=== PATIENT | female | born 1965 | race Caucasian/White ===

== ENCOUNTER 2016-07-14 18:02 | Emergency (ER) | payer BC, OTHER ==
[2016-07-14] MEDS ORDERED: Sodium Chloride 0.9% 2.5 ML Syringe FLUSH PRN (18:05)
[2016-07-14] MEDS ORDERED: Aspirin 81 MG Tab.Chew PO ONE (18:05)
[2016-07-14] MEDS ORDERED: Famotidine 20 MG/2 ML SDV IVPUSH ONE (18:05)
[2016-07-14] MEDS ORDERED: Sodium Chloride 0.9% 10 ML Syringe FLUSH PRN (18:05)
--- NOTE | 2016-07-14 18:08 | EDM.PDOC ---
ED HISTORY OF PRESENT ILLNESS - General Stated Complaint: CHEST PAINS Time Seen by Provider: 07/14/16 18:08 Source of Information: Reports: Patient History Limitations: Reports: No limitations - History of Present Illness INITIAL COMMENTS - FREE TEXT/NARRATIVE: HISTORY AND PHYSICAL: [51-year-old female presents with chest pain for the last week] History of Present Illness: [Pain moves around from day to the left side the right side to the back She has been taking 20 ibuprofen tablets daily and states it helps with the pain Alcohol intake tonight it does make her feel better She had dinner stated to the significant other that she just couldn't take it anymore and had to come to the ER] Review of Systems: As per history of present illness and below otherwise all systems reviewed and negative. Past medical history: As per history of present illness and as reviewed below otherwise noncontributory. Surgical history: As per history of present illness and as reviewed below otherwise noncontributory. Social history: No reported history of drug or alcohol abuse. Family history: As per history of present illness and as reviewed below otherwise noncontributory. Physical exam: Patient voices concern over impending doom. " I feel like I am going to " HEENT: Atraumatic, normocehpalic, pupils reactive, negative for conjunctival pallor or scleral icterus, mucous membranes moist, throat clear, neck supple, nontender, trachea midline. Lungs: Clear to auscultation, breath sounds equal bilaterally, chest tender on palpation. Heart: S1S2, regular, negative for clicks, rubs, or JVD. Abdomen: Soft, nondistended, nontender. Negative for masses or hepatossplenmegaly. Negative for costovertebral tenderness. No rebound no guarding. Extremities: Atraumatic, negative for cords or calf pain. Neurovascular unremarkable. Neuro: Awake, alert, oriented. Cranial nerves II through XII unremarkable. Cerebellum unremarkable. Motor and sensory unremarkable throughout. Exam nonfocal. Discussed with patient and that her cardiac enzymes are negative however have offered for admission for observation on telemetry patient expressing desire to return home. Patient verbalized understanding of the my concerns. Diagnostics: [CBC CMP and EKG troponin amylase lipase UA urine drug screen] Therapeutics: []IV Fluid ativan 0.5mg IV Impression: [Chest wall pain/atypical chest pain Gastritis Plan: [The patient will be discharged to home Instructions have been given for patient to stop using her ibuprofen Prescription for diclofenac written Would like patient to take Mylanta 4 times a day ] Definitive disposition and diagnosis as appropriate pending reevaluation and review of above. Timing/Duration: Reports: Week(s):, Sudden onset Severity: moderate Location, General: Reports: chest Quality: Reports: Ache, Stabbing Associated Symptoms (General): Reports: no other symptoms - Related Data Allergies/ADRs: Allergies Allergy/AdvReac Type Severity Reaction Status Date / Time No Known Allergies Allergy Verified 07/14/16 18:11 Home Meds: Home Meds Ibuprofen 200 mg PO DAILY 07/14/16 [History] ED ROS GENERAL - Review of Systems Review Of Systems: ROS reveals no pertinent complaints other than HPI. ED EXAM, GENERAL - Physical Exam Exam: See Below (see dictation) Course - Vital Signs Last Recorded V/S: Last Vital Signs Temp 36.6 C 07/14/16 19:25 Pulse 101 H 07/14/16 19:25 Resp 20 07/14/16 19:25 BP 109/55 L 07/14/16 19:25 Pulse Ox 97 07/14/16 19:25 - Orders/Labs/Meds Orders: Active Orders 24 hr Category Date Time Status Cardiac Monitoring [RC] . DIRECTED Care 07/14/16 18:05 Active EKG Documentation Completion [RC] STAT Care 07/14/16 18:05 Active EKG Documentation Completion [RC] STAT Care 07/14/16 19:18 Active Oxygen Therapy [RC] ASDIRECTED Care 07/14/16 18:05 Active Chest 1V Frontal [CR] Stat Exams 07/14/16 18:05 Taken Sodium Chloride 0.9% [Saline Flush] Med 07/14/16 18:05 Active 10 ml FLUSH ASDIRECTED PRN Sodium Chloride 0.9% [Saline Flush] Med 07/14/16 18:05 Active 2.5 ml FLUSH ASDIRECTED PRN Peripheral IV Insertion Adult [OM.PC] Stat Oth 07/14/16 18:05 Ordered Saline Lock Insert [OM.PC] Stat Oth 07/14/16 18:05 Ordered Medication Orders Sodium Chloride (Saline Flush) 10 ml FLUSH ASDIRECTED PRN PRN Reason: Keep Vein Open Sodium Chloride (Saline Flush) 2.5 ml FLUSH ASDIRECTED PRN PRN Reason: Keep Vein Open Labs: Laboratory Tests 07/14/16 07/14/16 07/14/16 Range/Units 18:20 18:20 18:20 WBC 4.63 (4.0-11.0) K/uL RBC 4.22 L (4.30-5.90) M/uL Hgb 15.1 (12.0-16.0) g/dL Hct 44.6 (36.0-46.0) % MCV 105.7 H (80.0-98.0) fL MCH 35.8 H (27.0-32.0) pg MCHC 33.9 (31.0-37.0) g/dL RDW Std Deviation 55.9 (28.0-62.0) fl RDW Coeff of Patria 14 (11.0-15.0) % Plt Count 147 L (150-400) K/uL MPV 9.80 (7.40-12.00) fL Neut % (Auto) 45.8 L (48.0-80.0) % Lymph % (Auto) 43.2 H (16.0-40.0) % [place] % (Auto) 7.6 (0.0-15.0) % Eos % (Auto) 3.2 (0.0-7.0) % Baso % (Auto) 0.2 (0.0-1.5) % Neut # 2.1 (1.4-5.7) K/uL Lymph # 2.0 (0.6-2.4) K/uL [place] # 0.4 (0.0-0.8) K/uL Eos # 0.2 (0.0-0.7) K/uL Baso # 0.0 (0.0-0.1) K/uL Nucleated RBC % 0.0 /100WBC Nucleated RBCs # 0 K/uL INR 1.00 (0.86-1.11) Sodium 138 (136-146) mmol/L Potassium 3.0 L (3.5-5.1) mmol/L Chloride 104 (98-110) mmol/L Carbon Dioxide 19 L (21-31) mmol/L BUN 6 (6.0-23.0) mg/dL Creatinine 0.8 (0.6-1.5) mg/dL Est Cr Clr Drug Dosing 71.84 mL/min Estimated GFR (MDRD) > 60.0 ml/min Glucose 98 (60-110) mg/dL Calcium 9.3 (8.8-10.8) mg/dL Total Bilirubin 0.6 (0.1-1.5) mg/dL AST 47 H (5-40) IU/L ALT 50 (8-54) IU/L Alkaline Phosphatase 82 (40-150) Troponin I (0.0-0.29) NG/ML Total Protein 7.0 (6.0-8.0) g/dL Albumin 4.1 (3.5-5.0) g/dL Globulin 2.9 (2.0-3.5) g/dL Albumin/Globulin Ratio 1.4 (1.3-2.8) Amylase 45 (10-90) U/L Lipase 53 (7-80) U/L Urine Color Urine Appearance Urine pH (5.0-8.0) Ur Specific [place] (1.001-1.035) Urine Protein (NEGATIVE) mg/dL Urine Glucose (UA) (NEGATIVE) mg/dL Urine Ketones (NEGATIVE) mg/dL Urine Occult Blood (NEGATIVE) Urine Nitrite (NEGATIVE) Urine Bilirubin (NEGATIVE) Urine Urobilinogen (<2.0) EU/dL Ur Leukocyte Esterase (NEGATIVE) Urine RBC (0-2/HPF) Urine WBC (0-5/HPF) Ur Epithelial Cells (NONE-FEW) Urine Bacteria (NEGATIVE) Urine Mucus (NONE-MOD) Urine Opiates Screen (NEGATIVE) Ur Oxycodone Screen (NEGATIVE) Urine Methadone Screen (NEGATIVE) Ur Barbiturates Screen (NEGATIVE) Ur Phencyclidine Scrn (NEGATIVE) Ur Amphetamine Screen (NEGATIVE) U Methamphetamines Scrn (NEGATIVE) U Benzodiazepines Scrn (NEGATIVE) U Cocaine Metab Screen (NEGATIVE) U Marijuana (THC) Screen (NEGATIVE) Ethyl Alcohol mg/dL 07/14/16 07/14/16 07/14/16 Range/Units 18:20 18:20 18:50 WBC (4.0-11.0) K/uL RBC (4.30-5.90) M/uL Hgb (12.0-16.0) g/dL Hct (36.0-46.0) % MCV (80.0-98.0) fL MCH (27.0-32.0) pg MCHC (31.0-37.0) g/dL RDW Std Deviation (28.0-62.0) fl RDW Coeff of Patria (11.0-15.0) % Plt Count (150-400) K/uL MPV (7.40-12.00) fL Neut % (Auto) (48.0-80.0) % Lymph % (Auto) (16.0-40.0) % [place] % (Auto) (0.0-15.0) % Eos % (Auto) (0.0-7.0) % Baso % (Auto) (0.0-1.5) % Neut # (1.4-5.7) K/uL Lymph # (0.6-2.4) K/uL [place] # (0.0-0.8) K/uL Eos # (0.0-0.7) K/uL Baso # (0.0-0.1) K/uL Nucleated RBC % /100WBC Nucleated RBCs # K/uL INR (0.86-1.11) Sodium (136-146) mmol/L Potassium (3.5-5.1) mmol/L Chloride (98-110) mmol/L Carbon Dioxide (21-31) mmol/L BUN (6.0-23.0) mg/dL Creatinine (0.6-1.5) mg/dL Est Cr Clr Drug Dosing mL/min Estimated GFR (MDRD) ml/min Glucose (60-110) mg/dL Calcium (8.8-10.8) mg/dL Total Bilirubin (0.1-1.5) mg/dL AST (5-40) IU/L ALT (8-54) IU/L Alkaline Phosphatase (40-150) Troponin I < 0.10 (0.0-0.29) NG/ML Total Protein (6.0-8.0) g/dL Albumin (3.5-5.0) g/dL Globulin (2.0-3.5) g/dL Albumin/Globulin Ratio (1.3-2.8) Amylase (10-90) U/L Lipase (7-80) U/L Urine Color Urine Appearance Urine pH (5.0-8.0) Ur Specific [place] (1.001-1.035) Urine Protein (NEGATIVE) mg/dL Urine Glucose (UA) (NEGATIVE) mg/dL Urine Ketones (NEGATIVE) mg/dL Urine Occult Blood (NEGATIVE) Urine Nitrite (NEGATIVE) Urine Bilirubin (NEGATIVE) Urine Urobilinogen (<2.0) EU/dL Ur Leukocyte Esterase (NEGATIVE) Urine RBC (0-2/HPF) Urine WBC (0-5/HPF) Ur Epithelial Cells (NONE-FEW) Urine Bacteria (NEGATIVE) Urine Mucus (NONE-MOD) Urine Opiates Screen NEGATIVE (NEGATIVE) Ur Oxycodone Screen NEGATIVE (NEGATIVE) Urine Methadone Screen NEGATIVE (NEGATIVE) Ur Barbiturates Screen NEGATIVE (NEGATIVE) Ur Phencyclidine Scrn NEGATIVE (NEGATIVE) Ur Amphetamine Screen NEGATIVE (NEGATIVE) U Methamphetamines Scrn NEGATIVE (NEGATIVE) U Benzodiazepines Scrn NEGATIVE (NEGATIVE) U Cocaine Metab Screen NEGATIVE (NEGATIVE) U Marijuana (THC) Screen NEGATIVE (NEGATIVE) Ethyl Alcohol 284.1 mg/dL 07/14/16 Range/Units 18:50 WBC (4.0-11.0) K/uL RBC (4.30-5.90) M/uL Hgb (12.0-16.0) g/dL Hct (36.0-46.0) % MCV (80.0-98.0) fL MCH (27.0-32.0) pg MCHC (31.0-37.0) g/dL RDW Std Deviation (28.0-62.0) fl RDW Coeff of [place] (11.0-15.0) % Plt Count (150-400) K/uL MPV (7.40-12.00) fL Neut % (Auto) (48.0-80.0) % Lymph % (Auto) (16.0-40.0) % [place] % (Auto) (0.0-15.0) % Eos % (Auto) (0.0-7.0) % Baso % (Auto) (0.0-1.5) % Neut # (1.4-5.7) K/uL Lymph # (0.6-2.4) K/uL [place] # (0.0-0.8) K/uL Eos # (0.0-0.7) K/uL Baso # (0.0-0.1) K/uL Nucleated RBC % /100WBC Nucleated RBCs # K/uL INR (0.86-1.11) Sodium (136-146) mmol/L Potassium (3.5-5.1) mmol/L Chloride (98-110) mmol/L Carbon Dioxide (21-31) mmol/L BUN (6.0-23.0) mg/dL Creatinine (0.6-1.5) mg/dL Est Cr Clr Drug Dosing mL/min Estimated GFR (MDRD) ml/min Glucose (60-110) mg/dL Calcium (8.8-10.8) mg/dL Total Bilirubin (0.1-1.5) mg/dL AST (5-40) IU/L ALT (8-54) IU/L Alkaline Phosphatase (40-150) Troponin I (0.0-0.29) NG/ML Total Protein (6.0-8.0) g/dL Albumin (3.5-5.0) g/dL Globulin (2.0-3.5) g/dL Albumin/Globulin Ratio (1.3-2.8) Amylase (10-90) U/L Lipase (7-80) U/L Urine Color YELLOW Urine Appearance CLEAR Urine pH 6.0 (5.0-8.0) Ur Specific [place] <= 1.005 (1.001-1.035) Urine Protein NEGATIVE (NEGATIVE) mg/dL Urine Glucose (UA) NEGATIVE (NEGATIVE) mg/dL Urine Ketones NEGATIVE (NEGATIVE) mg/dL Urine Occult Blood SMALL H (NEGATIVE) Urine Nitrite NEGATIVE (NEGATIVE) Urine Bilirubin NEGATIVE (NEGATIVE) Urine Urobilinogen 0.2 (<2.0) EU/dL Ur Leukocyte Esterase NEGATIVE (NEGATIVE) Urine RBC 0-1 (0-2/HPF) Urine WBC 0-1 (0-5/HPF) Ur Epithelial Cells OCCASIONAL (NONE-FEW) Urine Bacteria RARE (NEGATIVE) Urine Mucus LIGHT (NONE-MOD) Urine Opiates Screen (NEGATIVE) Ur Oxycodone Screen (NEGATIVE) Urine Methadone Screen (NEGATIVE) Ur Barbiturates Screen (NEGATIVE) Ur Phencyclidine Scrn (NEGATIVE) Ur Amphetamine Screen (NEGATIVE) U Methamphetamines Scrn (NEGATIVE) U Benzodiazepines Scrn (NEGATIVE) U Cocaine Metab Screen (NEGATIVE) U Marijuana (THC) Screen (NEGATIVE) Ethyl Alcohol mg/dL Meds: Medications Generic Name Dose Route Start Last Admin Trade Name Simon PRN Reason Stop Dose Admin Sodium Chloride 10 ml 07/14/16 18:05 Saline Flush FLUSH ASDIRECTED PRN Keep Vein Open Sodium Chloride 2.5 ml 07/14/16 18:05 Saline Flush FLUSH ASDIRECTED PRN Keep Vein Open Discontinued Medications Generic Name Dose Route Start Last Admin Trade Name Simon PRN Reason Stop Dose Admin Aspirin 324 mg 07/14/16 18:05 07/14/16 18:24 Aspirin PO 07/14/16 18:06 324 mg ONETIME ONE Administration Al Hydroxide/Mg Hydroxide 15 0 ml 07/14/16 18:50 07/14/16 19:35 ml/ Metoclopramide HCl 5 mg/ PO 07/14/16 18:51 1 each Lidocaine HCl 5 ml ONETIME ONE Administration Famotidine 20 mg 07/14/16 18:05 07/14/16 18:30 Pepcid IVPUSH 07/14/16 18:06 20 mg ONETIME ONE Administration Lorazepam 0.5 mg 07/14/16 18:15 07/14/16 18:24 Ativan IVPUSH 07/14/16 18:16 0.5 mg ONETIME ONE Administration Morphine Sulfate 1 mg 07/14/16 18:25 07/14/16 18:35 Morphine IV 07/14/16 18:26 1 mg ONETIME ONE Administration Departure - Departure Time of Disposition: 19:52 Disposition: Home, Self-Care 01 Condition: good Clinical Impression: Atypical chest pain Gastritis Qualifiers: Gastritis type: unspecified gastritis Chronicity: acute Gastritis bleeding: without bleeding Qualified Code(s): K29.00 - Acute gastritis without bleeding Additional Instructions: The following information is given to patients seen in the emergency department who are being discharged to home. This information is to outline your options for follow-up care. We provide all patients seen in our emergency department with a follow-up referral. The need for follow-up, as well as the timing and circumstances, are variable depending upon the specifics of your emergency department visit. If you don't have a primary care physician on staff, we will provide you with a referral. We always advise you to contact your personal physician following an emergency department visit to inform them of the circumstance of the visit and for follow-up with them and/or the need for any referrals to a consulting specialist. The emergency department will also refer you to a specialist when appropriate. This referral assures that you have the opportunity for followup care with a specialist. All of these measure are taken in an effort to provide you with optimal care, which includes your followup. Under all circumstances we always encourage you to contact your private physician who remains a resource for coordinating your care. When calling for followup care, please make the office aware that this follow-up is from your recent emergency room visit. If for any reason you are refused follow-up, please contact the [facility] emergency department at and asked to speak to the emergency department charge nurse. Mylanta 4 times daily Prescription for diclofenac 75 mg bid #20NR Followup with your primary care provider in 2 days Current emergency room should his symptoms worsen in intensity - My Orders Last 24 Hours: My Active Orders 07/14/16 18:05 Cardiac Monitoring [RC] . DIRECTED EKG Documentation Completion [RC] STAT Oxygen Therapy [RC] ASDIRECTED Chest 1V Frontal [CR] Stat Sodium Chloride 0.9% [Saline Flush] 10 ml FLUSH ASDIRECTED PRN Sodium Chloride 0.9% [Saline Flush] 2.5 ml FLUSH ASDIRECTED PRN Peripheral IV Insertion Adult [OM.PC] Stat Saline Lock Insert [OM.PC] Stat 07/14/16 19:18 EKG Documentation Completion [RC] STAT - Assessment/Plan Last 24 Hours: My Active Orders 07/14/16 18:05 Cardiac Monitoring [RC] . DIRECTED EKG Documentation Completion [RC] STAT Oxygen Therapy [RC] ASDIRECTED Chest 1V Frontal [CR] Stat Sodium Chloride 0.9% [Saline Flush] 10 ml FLUSH ASDIRECTED PRN Sodium Chloride 0.9% [Saline Flush] 2.5 ml FLUSH ASDIRECTED PRN Peripheral IV Insertion Adult [OM.PC] Stat Saline Lock Insert [OM.PC] Stat 07/14/16 19:18 EKG Documentation Completion [RC] STAT
[2016-07-14] MEDS ORDERED: LORazepam 2 MG/ML MDV IVPUSH ONE (18:15)
[2016-07-14] MEDS ORDERED: Morphine 10 MG/ML Syringe IV ONE (18:25)
[2016-07-14] MEDS ORDERED: Alum Hydrox/Mag Hydrox/Simeth 15 ML, Metoclopramide 5 MG, Lidocaine 2% 5 ML PO ONE ×3 (18:50)
[2016-07-14 18:58] LABS: CHLORIDE,CL 104 mmol/L (98-110); SODIUM,NA 138 mmol/L (136-146)
[2016-07-14] MEDS ORDERED: HYDROmorphone 2 MG/ML Syringe IVPUSH ONE (19:57)
[2016-07-14 20:17] VITALS: BP 100/59
--- NOTE | 2016-07-16 20:45 | CR ---
EXAM DATE: 07/14/16 PATIENT'S AGE: 51 Patient: JUAN ALATORRE Facility: [place], [place] Site . Site : [id number] Study: XRay Chest [id number]/11/2017 6:43:06 PM Ordering Physician: Doctor Hancock Final Report: INDICATION: chest pain TECHNIQUE: Chest 1 view. COMPARISON: None. FINDINGS: Cardiovascular and mediastinum: Heart size and vasculature are normal in caliber and appearance. Mediastinum is within normal limits. Lungs and pleural space: Lungs are clear. No sign of infiltrate or mass. No sign of pleural effusion. No pneumothorax. Bones and soft tissues: No significant findings. IMPRESSION: Unremarkable chest. Dictated by: Wilmer Dubon MD @ 07/14/2016 19:15:33 (Electronic Signature) Report Signed by Proxy and Original Signed Document filed in the Medical Record. MTDD
== END 2016-07-14 20:14 | disposition home or self-care (01) ==
LOC: MW.ED 18:02
DX: K29.00 Acute gastritis without bleeding (principal); R07.89 Other chest pain
CPT/HCPCS: 71010; 80053; 80305; 81001; 82150; 83690; 84484; 85025; 85610; 93005; 96374; 96375; 99285; A9270; G0480; J2060; J2270; 99284

== ENCOUNTER 2016-11-08 11:50 | Emergency (ER) | payer BC ==
--- NOTE | 2016-11-08 12:15 | EDM.PDOC ---
[id number]: CHEST PAIN Time Seen by Provider: 11/08/16 13:00 - History of Present Illness INITIAL COMMENTS - FREE TEXT/NARRATIVE: HISTORY AND PHYSICAL: History of present illness: Patient 51-year-old female who was sent to ER per cardiology for CT of her chest due to an elevated d-dimer she's had some chest pain over last 3-4 days denies any clearly associated symptoms. Review of systems: As per history of present illness and below otherwise all systems reviewed and negative. Past medical history: As per history of present illness and as reviewed below otherwise noncontributory. Surgical history: As per history of present illness and as reviewed below otherwise noncontributory. Social history: No reported history of drug or alcohol abuse. Family history: As per history of present illness and as reviewed below otherwise noncontributory. Physical exam: HEENT: Atraumatic, normocephalic, pupils reactive, negative for conjunctival pallor or scleral icterus, mucous membranes moist, throat clear, neck supple, nontender, trachea midline. Lungs: Clear to auscultation, breath sounds equal bilaterally, chest nontender. Heart: S1S2, regular, negative for clicks, rubs, or JVD. Abdomen: Soft, nondistended, nontender. Negative for masses or hepatosplenomegaly. Negative for costovertebral tenderness. Pelvis: Stable nontender. Genitourinary: Deferred. Rectal: Deferred. Extremities: Atraumatic, negative for cords or calf pain. Neurovascular unremarkable. Neuro: Awake, alert, oriented. Cranial nerves II through XII unremarkable. Cerebellum unremarkable. Motor and sensory unremarkable throughout. Exam nonfocal. Diagnostics: CTA chest Therapeutics: None Impression: #1 atypical chest pain #2 history of elevated d-dimer Definitive disposition and diagnosis as appropriate pending reevaluation and review of above. 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 ED EXAM, GENERAL - Physical Exam Exam: See Below (See dictation) Course - Vital Signs Last Recorded V/S: Last Vital Signs Temp 37.0 C 11/08/16 11:58 Pulse 85 11/08/16 13:30 Resp 16 11/08/16 13:30 BP 178/102 H 11/08/16 13:30 Pulse Ox 94 L 11/08/16 13:30 - Orders/Labs/Meds Orders: Active Orders 24 hr Category Date Time Status EKG 12 Lead [EKG Documentation Completion] [RC] STAT Care 11/08/16 11:53 Active Meds: Medications Discontinued Medications Generic Name Dose Route Start Last Admin Trade Name Simon PRN Reason Stop Dose Admin Iopamidol 50 ml 11/08/16 12:26 11/08/16 12:28 Isovue Multipack-370 (76%) IVPUSH 11/08/16 12:27 50 ml ONETIME STA Administration Departure - Departure Time of Disposition: 12:14 Disposition: Home, Self-Care 01 Condition: Good Clinical Impression: Atypical chest pain, Chest pain Instructions: Nonspecific Chest Pain, [id number] Referrals: Cameron Nowak MD [Physician] - Forms: ED Department Discharge - My Orders Last 24 Hours: My Active Orders 11/08/16 11:53 EKG 12 Lead [EKG Documentation Completion] [RC] STAT - Assessment/Plan Last 24 Hours: My Active Orders 11/08/16 11:53 EKG 12 Lead [EKG Documentation Completion] [RC] STAT
[2016-11-08] MEDS ORDERED: Iopamidol 755 MG/ML 500 ML Multipack Bottle IVPUSH STA (12:26)
--- NOTE | 2016-11-08 13:06 | CT ---
EXAMINATION: CTA chest HISTORY: Chest pain COMPARISON: Radiographs dated 07/14/2016 TECHNIQUE: Axial CT images obtained through the chest without contrast. Coronal and sagittal reconst ructions obtained. FINDINGS: The lungs are clear without focal consolidation. No pleural effusion or pneumothorax. Ther e is a tiny 3 mm nodule within the left costophrenic angle. The heart is normal in size without a pe ricardial effusion. The main and central pulmonary arteries are patent without evidence of a pulmona ry embolism. No mediastinal, hilar, or axillary lymphadenopathy. The thoracic aorta is normal in amanda iber. The central airways are clear. The visualized images of the upper abdomen appear grossly normal. No suspicious osseous abnormalitie s. IMPRESSION: 1. No acute cardiopulmonary findings. 2. There is a 3 mm pulmonary nodule within the left lung base. If the patient has known risk factors consider follow-up imaging in 12 months.
[2016-11-08 13:46] VITALS: BP 178/102
== END 2016-11-08 13:30 | disposition home or self-care (01) ==
LOC: MW.ED 11:50
DX: R07.89 Other chest pain (principal); F17.210 Nicotine dependence, cigarettes, uncomplicated
CPT/HCPCS: 71275; 99285; Q9967; 99282

== ENCOUNTER 2020-10-07 19:52 | Emergency (ER) | payer BC ==
--- NOTE | 2020-10-07 20:16 | EDM.PDOC ---
ED HPI GENERAL MEDICAL PROBLEM - General Chief Complaint: Lower Extremity Injury/Pain Stated Complaint: REDNESS, SWELLING IN FEET Time Seen by Provider: 10/07/20 20:07 Source of Information: Reports: Patient History Limitations: Reports: No Limitations - History of Present Illness INITIAL COMMENTS - FREE TEXT/NARRATIVE: HISTORY AND PHYSICAL: History of present illness: The patient is a 55-year-old female with a history of hypertension department with bilateral leg edema and red petechiae type rash on her lower extremities which started 4 days ago. She is taking hydrochlorothiazide and amlodipine for her hypertension. She states she has been on the amlodipine for 3 years and while she has some slight edema at times never like this. The patient states that she has been outside and standing on her legs most of the day. She denies any injury to the legs. She does not appreciate any associated symptoms. Patient denies any fever, chills, headache, change in vision, syncope or near syncope. Denies any chest pain, back pain, shortness of breath or cough. Denies any abdominal pain, nausea, vomiting, diarrhea, constipation or dysuria. Has not noted any blood in urine or stool. Patient has been eating and drinking appropriately. Review of systems: As per history of present illness and below otherwise all systems reviewed and negative. Past medical history: As per history of present illness and as reviewed below otherwise noncontributory. Surgical history: As per history of present illness and as reviewed below otherwise noncontributory. Social history: See social history for further information Family history: As per history of present illness and as reviewed below otherwise noncontributory. Physical exam: General: Well developed and well nourished. Alert and orientated x 3. Nontoxic in appearance and in no acute distress. Vital signs are stable and have been reviewed by me. Nursing notes were reviewed. HEENT: Atraumatic, normocephalic, pupils equal and reactive bilaterally, negative for conjunctival pallor or scleral icterus, mucous membranes moist, TMs normal bilaterally, throat clear, neck supple, nontender, trachea midline. No drooling or trismus noted. No meningeal signs. No hot potato voice noted. Lungs: Clear to auscultation bilaterally. No wheezes, rales, or rhonchi. Chest nontender. Normal work of breathing, no accessory muscles used. Heart: S1S2, regular rate and rhythm without overt murmur, gallops, or rubs. No JVD. Bilateral 3+ pedal edema Abdomen: Soft, nondistended, nontender. Normoactive bowel sounds. Negative for masses or costovertebral tenderness. Skin: Intact, warm, dry. Type rash bilateral lower extremities below the knee. Hematologic: No petechiae or purpra. Mucosa appropriate color and normal nail bed color and refill. Extremities: Atraumatic, moves all extremities per self without difficulty or deficits, negative for cords or calf pain. Neurovascular unremarkable. Neuro: Awake, alert, oriented. Cranial nerves II through XII unremarkable. Cerebellum unremarkable. Motor and sensory unremarkable throughout. Exam nonfocal. Psychiatric: Mood and affect are appropriate. Normal thought process. Answering questions appropriately. Notes: *This patient was seen and evaluated during the 2019 SARS-CoV-2 novel coronavirus pandemic period. Community viral transmission is ongoing at time of this encounter and the emergency department is operating under pandemic response procedures. As stated above the patient states that she has been having slight pedal edema for some time but now it is 3+ and she has red petechiae type discoloration of her lower extremities. I have ordered blood work and a urinalysis. I will order an ultrasound of her bilateral legs. The ultrasound has come back neg ative. The patient's blood work was delayed. The patient CBC is unremarkable patient. The the patient's CMP is unremarkable except for a potassium of 2.4. I have with the patient regarding the need for IV potassium which would take over 4 hours and the patient has declined stating that she will leave AGAINST MEDICAL ADVICE. I will give the patient 40 mEq and have her sign AMA paperwork. The patient left without getting her oral potassium or apparently signing the AMA paperwork. I have talked with the patient about today's findings, in addition to providing specific details for plan of care. Reassessment at the time of disposition demonstrates that the patient is in no acute distress. The patient is stable for discharge, counseling was provided and we discussed in great detail signs and symptoms that would prompt them to return to the Emergency Department. Medication, follow up and supportive care measures were reviewed and discussed. Voices understanding and is agreeable to plan of care. Denies any further questions or concerns at this time. Diagnostics: CBC, CMP, UA, ultrasound bilateral legs Therapeutics: Potassium 40 mEq Prescription: Potassium 40 mEq daily for 7 days Impression: Hypokalemia, bilateral pedal edema Plan: 1. You were evaluated today on an emergent basis. Your complaints of bilateral leg edema and lower leg discoloration were evaluated with an ultrasound which was negative for DVT in both legs. Your blood work showed your potassium was very low at 2.4. I advised you to stay and have IV 40 mEq of potassium over the course of 4 hours and have 40 mEq of potassium orally and you declined wishing to leave AGAINST MEDICAL ADVICE. It is imperative that you follow-up with your primary care provider JULIOCESAR. If you have any kind of chest pains, shortness of breath, or any symptoms you need to return to the emergency department soon as possible. 2. You can alternate Tylenol and ibuprofen as needed for pain and fever management. 3. We encourage you to follow up with your primary care provider and/or recommended specialist in the next few days for re-evaluation and further care/management. 4. If your symptoms should worsen, new symptoms develop or any of the signs and symptoms we discussed should arise please return to the emergency room or call 911 (if needed). Definitive disposition and diagnosis as appropriate pending reevaluation and review of above. 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 ED EXAM, GENERAL - Physical Exam Exam: See Below (See dictation) Course - Vital Signs Last Recorded V/S: Last Vital Signs Temp 98.2 F 10/07/20 20:36 Pulse 68 10/07/20 20:36 Resp 16 10/07/20 20:36 BP 110/63 10/07/20 20:36 Pulse Ox 93 L 10/07/20 20:36 - Orders/Labs/Meds Labs: Laboratory Tests 10/07/20 10/07/20 10/07/20 Range/Units 21:00 22:00 22:00 WBC 5.28 (4.0-11.0) K/uL RBC 4.00 L (4.30-5.90) M/uL Hgb 14.1 (12.0-16.0) g/dL Hct 41.5 (36.0-46.0) % MCV 103.8 H (80.0-98.0) fL MCH 35.3 H (27.0-32.0) pg MCHC 34.0 (31.0-37.0) g/dL RDW Std Deviation 53.3 (28.0-62.0) fl RDW Coeff of Patria 14 (11.0-15.0) % Plt Count 199 (150-400) K/uL MPV 9.20 (7.40-12.00) fL Neut % (Auto) 45.4 L (48.0-80.0) % Lymph % (Auto) 41.9 H (16.0-40.0) % [place] % (Auto) 7.4 (0.0-15.0) % Eos % (Auto) 5.1 (0.0-7.0) % Baso % (Auto) 0.2 (0.0-1.5) % Neut # (Auto) 2.4 (1.4-5.7) K/uL Lymph # (Auto) 2.2 (0.6-2.4) K/uL [place] # (Auto) 0.4 (0.0-0.8) K/uL Eos # (Auto) 0.3 (0.0-0.7) K/uL Baso # (Auto) 0.0 (0.0-0.1) K/uL Nucleated RBC % 0.0 /100WBC Nucleated RBCs # 0 K/uL Sodium 137 (136-145) mmol/L Potassium 2.4 L* (3.5-5.1) mmol/L Chloride 97 L (98-107) mmol/L Carbon Dioxide 30.9 (21.0-32.0) mmol/L BUN 8 (7.0-18.0) mg/dL Creatinine 0.7 (0.6-1.0) mg/dL Est Cr Clr Drug Dosing 78.41 mL/min Estimated GFR (MDRD) > 60.0 ml/min Glucose 92 (74-106) mg/dL Calcium 9.3 (8.5-10.1) mg/dL Total Bilirubin 0.5 (0.2-1.0) mg/dL AST 31 (15-37) IU/L ALT 32 (14-63) IU/L Alkaline Phosphatase 84 (46-116) U/L Total Protein 6.9 (6.4-8.2) g/dL Albumin 3.6 (3.4-5.0) g/dL Globulin 3.3 (2.6-4.0) g/dL Albumin/Globulin Ratio 1.1 (0.9-1.6) Urine Color YELLOW Urine Appearance SLT CLOUDY Urine pH 5.5 (5.0-8.0) Ur Specific [place] <= 1.005 (1.001-1.035) Urine Protein NEGATIVE (NEGATIVE) mg/dL Urine Glucose (UA) NEGATIVE (NEGATIVE) mg/dL Urine Ketones NEGATIVE (NEGATIVE) mg/dL Urine Occult Blood TRACE-INTACT H (NEGATIVE) Urine Nitrite NEGATIVE (NEGATIVE) Urine Bilirubin NEGATIVE (NEGATIVE) Urine Urobilinogen 0.2 (<2.0) EU/dL Ur Leukocyte Esterase NEGATIVE (NEGATIVE) Urine RBC 0-2 (0-2/HPF) Urine WBC 0-4 (0-5/HPF) Ur Epithelial Cells OCCASIONAL (NONE-FEW) Urine Bacteria FEW (NEGATIVE) Meds: Medications Discontinued Medications Generic Name Dose Route Start Last Admin Trade Name Freq PRN Reason Stop Dose Admin Potassium Chloride 40 meq 10/07/20 22:48 Potassium Chloride 20 Meq Tab.Er PO 10/07/20 22:49 ONETIME ONE Departure - Departure Time of Disposition: 23:04 Disposition: Against Medical Advice 07 Condition: Good Clinical Impression: Hypokalemia, Pedal edema - Discharge Information *PRESCRIPTION DRUG MONITORING PROGRAM REVIEWED*: Not Applicable *COPY OF PRESCRIPTION DRUG MONITORING REPORT IN PATIENT GUILLERMINA: Not Applicable Prescriptions: Potassium Chloride 40 meq PO DAILY 7 Days #14 tablet.er Instructions: Hypokalemia Referrals: Shefali Perez PA [Primary Care Provider] - Forms: ED Department Discharge Sepsis Event Note (ED) - Focused Exam Vital Signs: Vital Signs Temp Pulse Resp BP Pulse Ox 10/07/20 20:36 98.2 F 68 16 110/63 93 L
[2020-10-07 20:39] VITALS: BP 110/63; PULSE 68
[2020-10-07 22:22] LABS: BLOOD UREA NITROGEN,BUN 8 mg/dL (7.0-18.0); CARBON DIOXIDE,CO2 30.9 mmol/L (21.0-32.0); GLUCOSE RANDOM 92 mg/dL (74-106)
[2020-10-07 22:39] LABS: CHLORIDE,CL 97 mmol/L (98-107); SODIUM,NA 137 mmol/L (136-145)
[2020-10-07 22:43] LABS: POTASSIUM,K 2.4 mmol/L (3.5-5.1)
--- NOTE | 2020-10-07 22:47 | US ---
For Patients: As a result of the Century Cures Act, medical imaging exams and procedure reports are released immediately into your electronic medical record. You may view this report before your referring provider. If you have questions, please contact your health care provider. INDICATION: Bilateral calf pain and swelling TECHNIQUE: : Ultrasound venous duplex lower extremity bilateral. Compression venous exam was performed using jackson-scale, color Doppler, and spectral Doppler imaging. COMPARISON: None available FINDINGS: Sonographic imaging demonstrates the common femoral, deep femoral, superficial femoral, popliteal, posterior tibial and greater saphenous veins to be fully compressible with normal color Doppler blood flow in both lower extremities. IMPRESSION: No evidence of a deep venous thrombosis in the bilateral lower extremities. Dictated by Erwin Bolivar MD @ 10/07/2020 10:45:[address] Erwin Bolivar @ Oct 07 2020 10:45PM
[2020-10-07] MEDS ORDERED: Potassium Chloride 20 MEQ Tab.ER PO ONE (22:48)
== END 2020-10-07 23:05 | disposition left against medical advice (07) ==
LOC: MW.ED 19:52
DX: R60.0 Localized edema (principal); E87.6 Hypokalemia
CPT/HCPCS: 36415; 80053; 81001; 85025; 93970; 93970-26; 99284-25